=== PATIENT | male | born 1975 | race Caucasian/White ===

== ENCOUNTER 2018-04-23 01:23 | Emergency (ER) | payer SELFPAY ==
[~2018-04-23] VITALS: Ht 167.6 cm; Wt 85.3 kg
[2018-04-23 01:25] VITALS: BP 157/104
--- NOTE | 2018-04-23 01:30 | NUR ---
PT TO [facility] IN STABLE CONDITION
--- NOTE | 2018-04-23 02:22 | NUR ---
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 ALSO REPORTS LT ARM NUMBNESS AND DIZZINESS. -MLAPSS. ALSO C/O COUGH AND UPPER BACK PAIN. ALL LUNG SOUNDS CBTA, 16RR EVEN AND UNLABORED. DENIES TRAUMA TO BACK. AMB WITH STEADY GAIT, DENIES PERIPHERAL NUMBNESS/TINGLING DENIES PMH
--- NOTE | 2018-04-23 02:22 | NUR ---
TO ER CHAIR E
--- NOTE | 2018-04-23 02:22 | NUR ---
Patient being evaluated by physician.
--- NOTE | 2018-04-23 02:41 | NUR ---
Patient discharged with v/s stable. Written and verbal after care instructions given and explained. Patient verbalized understanding. Ambulatory with steady gait. All questions addressed prior to discharge. Advised to follow up with PMD.
== END 2018-04-23 02:41 | disposition home or self-care (01) ==
LOC: MED 01:23
DX: R06.4 Hyperventilation (principal); F41.1 Generalized anxiety disorder
CPT/HCPCS: 93005; 99283

== ENCOUNTER 2021-01-27 11:30 | Emergency (ER) | payer MEDICAID, SELFPAY ==
[~2021-01-27] VITALS: Ht 172.7 cm; Wt 88.0 kg
[2021-01-27 11:45] VITALS: BP 147/70
[2021-01-27] MEDS ORDERED: HYDROcodone/APAP 5/325 MG 1 TAB TAB PO ONE (12:05)
[2021-01-27] MEDS ORDERED: LID5T TP (12:47)
[2021-01-27] MEDS ORDERED: NAPR-54 PO (12:47)
--- NOTE | 2021-01-27 12:59 | NUR ---
No nursing interventions.
--- NOTE | 2021-01-27 13:00 | NUR ---
Pt discharged by VANESSA Adkins.
== END 2021-01-27 13:00 | disposition home or self-care (01) ==
LOC: MED 11:30
DX: U07.1 COVID-19 (principal); M79.10 Myalgia, unspecified site; M54.6 Pain in thoracic spine
CPT/HCPCS: 71045; 99283

== ENCOUNTER 2021-01-29 16:21 | Emergency (ER) | payer MEDICAID, SELFPAY ==
[~2021-01-29] VITALS: Ht 172.7 cm; Wt 86.2 kg
[~2021-01-29 16:21] MED LIST: LID5T TP; NAPR-54 PO
[2021-01-29 17:07] VITALS: BP 125/75
--- NOTE | 2021-01-29 17:11 | NUR ---
PT TO AWAIT IN TENT
--- NOTE | 2021-01-29 17:59 | NUR ---
NO NURSING INTERVENTIONS IMPLEMENTED
[2021-01-29 18:00] VITALS: BP 125/75
--- NOTE | 2021-01-29 18:00 | NUR ---
Patient discharged with v/s stable. Written and verbal after care instructions given and explained. Patient alert, oriented and verbalized understanding of instructions. Ambulatory with steady gait. All questions addressed prior to discharge. ID band removed. Patient advised to follow up with PMD. Rx of HYDROCODONE/ACETAMINOPHEN given. Patient educated on indication of medication including possible reaction and side effects. Opportunity to ask questions provided and answered.
[2021-01-29] MEDS ORDERED: ACET-8386 PO (18:05)
== END 2021-01-29 18:00 | disposition home or self-care (01) ==
LOC: MED 16:21
DX: M54.6 Pain in thoracic spine (principal)
CPT/HCPCS: 99283